=== PATIENT | female | born 1955 | race Caucasian/White ===

== ENCOUNTER 2021-04-30 13:28 | Emergency (ER) | payer BC, OTHER ==
--- OUTSIDE RECORDS SUMMARY | 2021-04-30 13:32 | XMS REPORT | Clinical Summary ---
:1955 Author Organization [facility] MD Valentin [facility] Address [address] [place] [address] Care Team Providers Name Role Phone Larry Moreno MD Primary Care Provider [phone] Rola Whittaker MD Unavailable Allergies No known active allergies Medications Medication Sig Dispensed Refills Start Date End Date Status potassium Take 10 mEq 0 02/14/2018 Active chloride by mouth (MICRO-K) 10 mEq daily. CR capsule propranolol Take 60 mg 0 04/20/2018 Active (INDERAL) 60 mg by mouth tablet twice daily. omeprazole Take 20 mg 0 Active (PriLOSEC) 20 mg by mouth capsule daily. Eliquis 5 mg Take 1 0 04/29/2020 Active tablet tablet by mouth twice daily. PRADAXA 150 mg Take 150 mg 0 03/28/2018 07/27/2020 D iscontinued (Not capsule by mouth Applicable ) twice daily. 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 Medical History Medical History Date Comments Hypertension Irregular heart beat Migraine Parkinson's disease Hearing loss Tooth disorder Arthritis Chronic constipation Gastroesophageal reflux disease Cardiomegaly Family History Medical History Relation Name Comments -Unknown cancer Maternal Grandmother Relation Name Status Comments Maternal Grandmother Social History Tobacco Use Types Packs/Day Years Used Date Never Smoker Smokeless Tobacco: Never Used Alcohol Use Standard Drinks/Week Comments No 0 (1 standard drink = 0.6 oz pure alcoho l) Sex Assigned at Date Recorded Not on file Job Start Date Occupation Industry Not on file Not on file Not on file Obstetrics History Last Filed Vital Signs Vital Sign Reading Time Taken Comments Blood Pressure 112/83 07/27/2020 10:22 AM CDT Pulse 95 07/27/2020 10:22 AM CDT Temperature 36.9 C (98.4 F) 07/27/2020 10:22 AM CDT Respiratory Rate 18 07/27/2020 10:22 AM CDT Oxygen Saturation 98% 07/27/2020 10:22 AM CDT Inhaled Oxygen Concentration - - Weight 106 kg (233 lb 11 oz) 07/27/2020 10:22 AM CDT Height - - Body Mass Index 38.47 06/11/2018 8:26 AM CDT Plan of Treatment Date Type Specialty Care Team Description 07/27/2021 Appointment Lab Tacho Villarreal MD [address] [place], [place] [address] (Be hess) 07/27/2021 Ancillary Procedure Radiology Payton Villarreal MD [address] [place], [place] [address] (Wo rk) 07/27/2021 Ancillary Procedure Radiology Payton Villarreal MD [address] [place] [place], [place] [address] (Wo rk) 07/27/2021 Office Visit Endocrinology Tacho Villarreal MD [address] [place], [place] [address] (Wo rk) Health Maintenance Due Date Last Done Comments COVID-19 Vaccination (1) 1960 Implants Implanted Type Area Superintendent Custodian Janitor Device Shelf Model / Serial Identifier Expiration / Lot Date Evicel 5ml Kit - [id number] Skin/Tis Right: "" 10/21/2019 [id number] / Implanted: Qty: 1 on 07/03/2018 by Juan Manuel Jones MD at [facility] [id number] / [id number] Procedures Procedure Name Priority Date/Time Associated Comments Diagnosis METANEPHRINES Routine 07/27/2020 9:59 Neoplasm of Results fo r this FRACTIONATED AM CDT uncertain behavior procedure are in of right adrenal the results gland section. Hypertension Benign neoplasm of left adrenal gland after 04/30/2020 Results Metanephrines Fractionated (07/27/2020 9:59 AM CDT) Normetane 0.35 <0.90 nmol/L [facility] [place] Metanephr <0.20 <0.50 nmol/L [facility] Comment: [facility] ADDITIONAL INFORMATION ------ This test was developed and its performance characteri stics determined by [facility] in a manner consistent with CLIA requirements. This test has not been cleared or approv ed by the U.S. Food and Drug Administration. Test Performed by: [facility] - [facility] [address] [place] [address] Ssds Mk 2 Advanced Operator: Hector Mckenzie M.D. Ph.D.; CLIA# [id number] Specimen Blood Performing Organization Address City/State/ZIP Code Phon e Number [facility] Unless otherwise noted, [place] [address] [place] all lab tests performed by: Division of Pathology and Laboratory Medicine [address] after 04/30/2020 Insurance Payer Benefit Plan / Subscriber ID Effective Phone Address T ype Group Dates [facility] MEDICARE [id number] 2020-Prese [address] [address] Medicare HEALTHCARE ADVANTAGE [place] [id number] Inna Machuca Personal/Family Self [address] (Home) [place] [address] [place] [address] [phone] 1 Advance Directives Code Status Date Activated Date Inactivated Comments Full Code 07/03/2018 1:51 PM 07/06/2018 5:10 PM Care 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
--- OUTSIDE RECORDS SUMMARY | 2021-04-30 13:32 | XMS REPORT | Continuity of Care Document ---
:1955 Author Organization [facility] t Address [address] [place] [address] Care Team Providers Name Role Phone SHARON JUAN Primary Care Physician Unavailable Boris HANSON, A Attending Clinician Laith WATSON Attending Clinician LAITH Attending Clinician Unavailable Pedro VILLARREAL Attending Clinician Unavailable Cherelle WATSON, A Attending Clinician Fidelia WATSON Attending Clinician Pob, Lab Main Attending Clinician Unavailable Doctor Unassigned, Name Attending Clinician Unavailable Josh WATSON Attending Clinician Payers Payer Name Policy Type Policy Number Effective Date Expiration Date Everette aguirre [facility] MEDICARE [id number] 2020 ADVANTAGE 00:00:00 Problems Condition Condition Condition Status Onset Resolution Last Treating Co mments Source Name Details Category Date Date Treatment Clinician Date Mass of Mass of Disease Active Overview: right right 4-22 Aleshia Cole adrenal adrenal 00:00: g of this n gland gland 00 note might be different from the original. Added automatic ally from request for surgery [id number] Hypertensi Hypertensi Disease Active 2019-0 M D on on 06-05 Anderso 00:00: n 00 Adrenal Adrenal Disease Active mass mass 3-11 Anderso 00:00: n 00 Pheochromo Pheochromo Disease Active 20190 M D cytoma cytoma 3-11 Anderso 00:00: n 00 Atrial Atrial Disease Active fibrillati fibrillati 3-11 An derso on on 00:00: n 00 Current Current Disease Active MD use of use of 311 Anderso anticoagul anticoagul 00:00: n ant ant 00 Low TSH Low TSH Disease Active Univers level level 9 ity of 00:00: [place] [address] Medical Branch Anemia, Anemia, Disease Active Univers unspecifie unspecifie 11-12 it y of d type d type 00:00: [address] Branch Colitis Colitis Disease Active Univers 9 ity of 00:00: [place] [address] Medical Branch Obesity Obesity Disease Active Univers (BMI (BMI 9- ity of 30-39.9) 30-39.9) 00:00: [address] Branch Chronic Chronic Disease Active 2015-02 Univers atrial atrial - ity of fibr[place] fibr[place] Essential Essential Disease Active 2015-02 Uni vers hypertensi hypertensi 1-21 it y of on on 00:00: [place] [address] Medical Branch Allergies, Adverse Reactions, Alerts Allergy Allergy Status Severity Reaction(s) Onset Inactive Treating Comm ents Source Name Type Date Date Clinician NO KNOWN Drug Active Univers ALLERGIE Class ity of S [facility] Family History Family Member Diagnosis Comments Start Date Stop Date Source Maternal grandmother -Unknown cancer MD Duff Social History Social Habit Start Date Stop Date Quantity Comments Source Exposure to Not sure University SARS-CoV-2 [place] [facility] (event) Branch Alcohol intake 2019-07-23 2019-07-23 Current MD Kelsey kumar 00:00:00 00:00:00 non-drinker of alcohol (finding) Tobacco use and 2018-04-30 2018-04-30 Smokeless tobacco MD Duff exposure 00:00:00 00:00:00 non-user Sex Ass[birth year] At [birth year] MD [place] on 00:00:00 00:00:00 Smoking Status Start Date Stop Date Source Never smoker [facility] Medical Branch Medications Ordered Filled Start Stop Current Ordering Indication Dosage Frequency Signature Comments Components Source Medication Medication Date Date Medication? Clinician (SIG) Name Name furosemide Yes [id number] 20mg Take 1 Univers (LASIX) 20 1-12 tablet by ity of mg tablet 00:00: mouth [place] 00 daily. Medical Branch KCL 10 mEq Yes [id number] 10meq Take 1 Univers tablet 1-12 tablet by ity of 00:00: mouth [place] 00 daily. Medical Branch furosemide Yes [id number] 20mg Take 1 Univers (LASIX) 20 1-12 tablet by ity of mg tablet 00:00: mouth [place] 00 daily. Medical Branch KCL 10 mEq Yes [id number] 10meq Take 1 Univers tablet 1-12 tablet by ity of 00:00: mouth [place] 00 daily. Medical Branch omeprazole Yes 20mg Take 20 mg M D (PriLOSEC) 6-07 by mouth Homero so 20 mg 10:57: daily. n capsule 27 Eliquis 5 Yes 1{tbl} Take 1 MD mg tablet 3-10 tablet by Homero so 00:00: mouth n 00 twice daily. propranolol 2018-02 Yes 20mg Take 20 mg Univers (INDERAL) 1-14 by mouth 2 ity of 10 mg 12:15: (two) [place] tablet 15 times Medical daily. Branch ASPIRIN/LULU 2018-02 Yes Take by Un ellen TAMINOPHEN/ 1-14 mouth. ity of CAFFEINE 12:15: [place] (EXCEDRIN 15 Medical MIGRAINE Branch ORAL) dabigatran 2018-02 Yes 150mg Take 150 Un ellen etexilate 1-14 mg by ity of (PRADAXA) 12:15: mouth 2 [place] 150 mg 15 (two) Medical capsule times Branch daily. omeprazole 2018-02 Yes 20mg Take 20 mg U nivers 20 mg 1-14 by mouth ity of capsule 12:15: daily. [place] 15 Medical Branch propranolol 2018-02 Yes 20mg Take 20 mg Univers (INDERAL) 1-14 by mouth 2 ity of 10 mg 12:15: (two) [place] tablet 15 times Medical daily. Branch ASPIRIN/LULU 2018-02 Yes Take by Un ellen TAMINOPHEN/ 1-14 mouth. ity of CAFFEINE 12:15: [place] (EXCEDRIN 15 Medical MIGRAINE Branch ORAL) dabigatran 2018-02 Yes 150mg Take 150 Un ellen etexilate 1-14 mg by ity of (PRADAXA) 12:15: mouth 2 [place] 150 mg 15 (two) Medical capsule times Branch daily. omeprazole 2018-02 Yes 20mg Take 20 mg U nivers 20 mg 1-14 by mouth ity of capsule 12:15: daily. [place] 15 Medical Branch propranolol Yes 60mg Take 60 mg MD (INDERAL) 3-01 by mouth [place] o 60 mg 00:00: twice n tablet 00 daily. PRADAXA 150 2020- No 150mg Take 150 MD mg capsule 2-06 06-07 mg by Anderso 00:00: 00:00 mouth n 00 :00 twice daily. potassium 2017-02 Yes 10meq Take 10 MD chloride 2-26 mEq by Anderso (MICRO-K) 00:00: mouth n 10 mEq CR 00 daily. capsule Omeprazole 2017-02 Yes Take by Uni vers Magnesium 1-20 mouth. ity of 20 mg 11:16: [place] capsule 09 Medical Branch Omeprazole 2017-02 Yes Take by Uni vers Magnesium 1-20 mouth. ity of 20 mg 11:16: [place] capsule 09 Medical Branch dicyclomine 2017-0 Yes [id number] 20mg Take 1 Univers 20 mg 9-11 tablet by ity of tablet 00:00: mouth 2 [place] (two) Medical times Branch daily. As needed for abdominal cramping dicyclomine 2017-0 Yes [id number] 20mg Take 1 Univers 20 mg 9-11 tablet by ity of tablet 00:00: mouth 2 [place] (two) Medical times Branch daily. As needed for abdominal cramping ciprofloxac 2017- Yes 500mg Take 1 Uni vers in HCl 500 9-05 tablet by ity of mg tablet 00:00: mouth 2 [place] (two) Medical times Branch daily. lisinopril 2017- Yes 20mg Take 1 Unive rs 20 mg 9-05 tablet by ity of tablet 00:00: mouth [place] 00 daily. Medical Branch ciprofloxac 2017- Yes 500mg Take 1 Uni vers in HCl 500 9-05 tablet by ity of mg tablet 00:00: mouth 2 00 (two) Medical times Branch daily. lisinopril 2018-0 Yes 20mg Take 1 Unive rs 20 mg 9-05 tablet by ity of tablet 00:00: mouth [place] [address] daily. Medical Branch Immunizations Ordered Filled Immunization Date Status Comments [facility] e Immunization Name Name Pneumococcal 2021-02-10 Completed [facility] f Polysaccharide, 00:00:00 [facility] ical PPSV23 (PNEUMOVAX) Branch Pneumococcal 2021-02-10 Completed [facility] f Polysaccharide, 00:00:00 [facility] ical PPSV23 (PNEUMOVAX) Branch Pneumococcal 2019-01-03 Completed [facility] f Polysaccharide, 00:00:00 [facility] ical PPSV23 (PNEUMOVAX) Branch Pneumococcal 2019-01-03 Completed [facility] f Polysaccharide, 00:00:00 [facility] ical PPSV23 (PNEUMOVAX) Branch Influenza High Dose 2018-12-21 Completed Unive rsity of 00:00:00 [facility] Influenza High Dose 2018-12-21 Completed Unive rsity of 00:00:00 [facility] Influenza Virus 2017-12-07 Completed Universit y of Vaccine Quad IM 3+ 00:00:00 [facility] Influenza Virus 2017-12-07 Completed Universit y of Vaccine Quad IM 3+ 00:00:00 [facility] Influenza Virus 2015-12-24 Completed Universit y of Vaccine Quad IM 3+ 00:00:00 [facility] Branch Pneumococcal 13 2015-12-24 Completed Universit y of Conjugate, PCV13 00:00:00 [facility] dical (Prevnar 13) [place] Influenza Virus 2015-12-24 Completed Universit y of Vaccine Quad IM 3+ 00:00:00 [facility] Branch Pneumococcal 13 2015-12-24 Completed Universit y of Conjugate, PCV13 00:00:00 [facility] dical (Prevnar 13) Branch Vital Signs Vital Name Observation Time Observation Value Comments Source Systolic blood 2021-04-06 19:25:00 103 mm[Hg] Univer sity of pressure [facility] Diastolic blood 2021-04-06 19:25:00 63 mm[Hg] Unive rsity of pressure [facility] Heart rate 2021-04-06 19:25:00 91 /min Universi ty of [facility] Body temperature 2021-04-06 19:25:00 36.5 Candace [facility] Respiratory rate 2021-04-06 19:25:00 16 /min [facility] Body height 2021-04-06 19:25:00 [facility]2 [facility] Body weight 2021-04-06 19:25:00 110.95 [facility] BMI 2021-04-06 19:25:00 38.31 kg/m2 [facility] Oxygen saturation in 2021-04-06 19:25:00 99 /min [facility] of Arterial blood by [facility] Pulse oximetry Branch WEIGHT 2020-07-27 10:22:00 106 kg WEIGHT 2020-07-27 10:22:00 106 kg Systolic blood 2020-07-27 15:22:00 112 mm[Hg] pressure Diastolic blood 2020-07-27 15:22:00 83 mm[Hg] MD Lucy almonteson pressure Heart rate 2020-07-27 15:22:00 95 /min MD Homero maldonado Body temperature 2020-07-27 15:22:00 36.89 Candace MD Pedro sanchezon Respiratory rate 2020-07-27 15:22:00 18 /min MD Pedro sanchezon Body weight 2020-07-27 15:22:00 106 kg MD Valentin son BMI 2020-07-27 15:22:00 38.47 kg/m2 MD Homero maldonado Oxygen saturation in 2020-07-27 15:22:00 98 /min MD Duff Arterial blood by Pulse oximetry Procedures Procedure Date / Time Performed Performing Clinician Sourc e METANEPHRINES FRACTIONATED 2020-07-27 14:59:00 Tacho Villarreal MD Plan of Care Planned Activity Planned Date Details Comments Source Future Scheduled Test 1960 00:00:00 COVID-19 Vaccination MD Duff (1) [code = COVID-19 Vaccination (1)] Encounters Start End Encounter Admission Attending Care Care Encounter Source Date/Time Date/Time Type Type Clinicians Facility Department ID 2021-04-08 2021-04-08 Prep For [facility], [facility] [id number] Univers 00:00:00 00:00:00 Surgery Tere CRUZ [id number] ity [facility] [id number] [id number] In dical NAL 204 [facility] 2021-04-06 2021-04-06 [facility] [id number] Univers 14:00:00 14:50:03 Visit Roman NANCY [id number] i ty [facility] [id number] [id number] In dical NAL 188 [facility] 2021-04-06 2021-04-06 Outpatient R LAITH [facility] [id number] [facility] 14:00:00 14:50:03 ROMAN stephanie [facility] 2020-07-27 2020-07-27 Outpatient WILY VILLARREAL MDA MDA [id number] 09:15:00 23:59:00 TACHO Chaparro rso n 2020-07-27 2020-07-27 Outpatient WILY VILLARREAL MDA MDA [id number] 10:14:47 11:25:51 TACHO Chaparro rso n 2019-06-21 2019-06-21 Zipper Trimmer Hand Karol Acosta [facility] [id number] 12:07:14 12:22:14 Visit Lab Ryan Cruz [id number] [place] [id number] Professio [id number] [address] 2019-06-21 2019-06-21 Orders [id number] 00:00:00 00:00:00 Only UnassignedBETTY [id number] Chloride [facility] [id number] 2019-06-07 2019-06-07 Fernie Juan [facility] [id number] 00:00:00 00:00:00 Larry Cruz [id number] [place] [id number] Professio [id number] [address] 2019-06-07 2019-06-07 Orders [id number] 00:00:00 00:00:00 Only Unassigned, BETTY [id number] [facility] [id number] Results Test Description Test Time Test Comments Results Result Comments Source Metanephrines Fractionated 2020-07-30 16:22:57 Test Item Value Reference Range Interpretation Comme nts Normetane Free-Ji 0.35 nmol/L <0.90 (test code = 53955-8) Metanephr Free-Ji <0.20 See_Comment ------- ADDITIONAL (test code = 64150-2) INFORM ATION This test was develo ped and its performance surinder racteristicsdetermined by [facility] in a manner consistent with Elaina caicedo. This test has not been cleare d or approved bythe U.S. Food and D rug Administration. Test Performed by:[facility] [place] [address]Lab Director: Hector gallego M.D. Ph.D.; CLIA# [id number] [Au tomated message] The system which ge nerated this result transmitted ref erence range: <0.50 nmol/L. The ref erence range was not used to interpr et this result as normal/abnormal . MD Duff
[2021-04-30] MEDS ORDERED: MEPERIDINE HCL 25 MG/ML SYR ONE (14:40)
[2021-04-30] MEDS ORDERED: ONDANSETRON 4 MG (ODT) TAB ONE (14:40)
--- NOTE | 2021-04-30 15:09 | RAD REPORT ---
EXAM DESCRIPTION: CTSpine Lumbar Wo Con04/30/2021 2:42 pm CLINICAL HISTORY: Back pain and COMPARISON: None TECHNIQUE: Computed axial tomography lumbar spine was obtained with coronal and sagittal reconstruct ion. All CT scans are performed using dose optimization technique as appropriate and may include automated exposure control or mA/KV adjustment according to patient size. FINDINGS: No fracture is seen. No dislocation Mild anterior subluxation of L3 on L4 Spondylosis L2-3 resulting in mild central spinal stenosis Vacuum phenomena L3-4 with disc thinning. Ligamentum flavum and facet hypertrophy. Thecal sac measure s approximately 6 millimeters. Mild to moderate narrowing of the right neural foramina Vacuum phenomena L4-5. Disc thinning with osteophytes. Ligamentum flavum and facet hypertrophy. Theca l sac appears markedly narrowed. Moderate narrowing of the neural foramina bilaterally Mild spondylosis L5-S1 Hemangioma L1 vertebral body IMPRESSION: Spondylosis L3-4. Mild anterior subluxation L3 on L4. This results in moderate to marked central spinal stenosis Spondylosis L4-5 resulting in marked central spinal stenosis. Nonemergent MRI would be recommended prior to any surgery.
--- NOTE | 2021-04-30 15:41 | ER ---
Nurse's Notes [facility] Name: Inna Machuca Age: 65 yrs Sex: Female : 1955 Arrival Date: 04/30/2021 Time: 13:33 Bed 10 Private MD: Diagnosis: Radiculopathy, lumbar region;Low back pain Presentation: 04/30 13:35 Chief complaint: Patient states: Pt bib EMS for R hip pain that radiates down her R leg lr4 since this AM. Pt states the pain started yesterday but was not debilitating until today. Pt states she has had trouble with R or L leg pain that radiates down for about a year now. Pt states the she has not received any dx for symptoms yet. Coronavirus screen: Vaccine status: Patient reports receiving the 2nd dose of the covid vaccine. Date December 11, 2020 Client denies travel out of the [place] in the last 14 days. At this time, the client does not indicate any symptoms associated with coronavirus-19. Ebola Screen: Patient negative for fever greater than or equal to 101.5 degrees Fahrenheit, and additional compatible Ebola Virus Disease symptoms. Initial Sepsis Screen: Does the patient meet any 2 criteria? No. Patient's initial sepsis screen is negative. Does the patient have a suspected source of infection? No. Patient's initial sepsis screen is negative. Risk Assessment: Do you want to hurt yourself or someone else? Patient reports no desire to harm self or others. Onset of symptoms was April 29, 2021. 13:35 Method Of Arrival: EMS lr4 13:35 Acuity: YANNICK 4 lr4 Triage Assessment: 13:39 General: Appears in no apparent distress. comfortable, uncomfortable, Behavior is calm, lr4 cooperative. Pain: Complains of pain in R hip Pain radiates to right leg Pain currently is 9 out of 10 on a pain scale. Historical: - Allergies: 13:39 No Known Allergies; lr4 - Home Meds: 13:39 Eliquis oral [Active]; Potassium Chloride Oral [Active]; propranolol Oral [Active]; lr4 - PMHx: 13:39 Atrial fibrillation; Obesity; Hypertensive disorder; lr4 - PSHx: 13:39 adrenal gland removal; lr4 - Immunization history:: Adult Immunizations up to date, Client reports receiving the 2nd dose of the Covid vaccine, Date received: December 11, 2020 [employer]. - Social history:: Smoking status: Patient denies any tobacco usage or history of. Screenin:46 Abuse screen: Denies threats or abuse. Nutritional screening: No deficits noted. lr4 Tuberculosis screening: No symptoms or risk factors identified. Fall Risk None identified. Assessment: 13:46 General: Appears in no apparent distress. uncomfortable, Behavior is calm, cooperative. lr4 Neuro: No deficits noted. Cardiovascular: No deficits noted. Respiratory: No deficits noted. Musculoskeletal: Circulation, motion, and sensation intact. Range of motion: limited in right hip Reports. 15:54 Reassessment: Patient is alert, oriented x 3, equal unlabored respirations, skin lr4 warm/dry/pink. Pt departed ed via wheelchair with all personal effects Patient states feeling better. Vital Signs: 13:35 BP 136 / 75; Pulse 88; Resp 20; Temp 96.5(O); Pulse Ox 98% on R/A; Weight 113.4 kg (R); lr4 Height 5 ft. 7 in. (170.18 cm); Pain 9/10; 15:54 BP 126 / 81; Pulse 85; Resp 20; Pulse Ox 98% on R/A; lr4 13:35 Body Mass Index 39.16 (113.40 kg, 170.18 cm) lr4 ED Course: 13:33 Patient arrived in ED. lr4 13:34 Trisha Moreno, BIRD is Primary Nurse. lr4 13:39 Triage completed. lr4 13:39 Arm band placed on right wrist. lr4 13:42 Pete Morales PA is PHCP. jr8 13:42 Real Borden MD is Attending Physician. jr8 13:47 Patient has correct armband on for positive identification. Bed in low position. Call lr4 light in reach. Door closed. Noise minimized. 13:47 No provider procedures requiring assistance completed. lr4 14:42 CT Lumbar Spine Wo Con In Process Unspecified. EDMS 16:03 Patient did not have IV access during this emergency room visit. lr4 Administered Medications: 14:50 Drug: Demerol (meperidine) 50 mg Route: IM; Site: right gluteus; lr4 15:28 Follow up: Response: Pain is unchanged, physician notified lr4 14:56 Drug: Ondansetron 4 mg Route: PO; lr4 15:28 Follow up: Response: Nausea is decreased lr4 15:46 Drug: Ketorolac 15 mg Route: IM; Site: left gluteus; lr4 15:53 Follow up: Response: Pain is decreased lr4 15:46 Drug: Decadron (dexamethasone) 10 mg Route: IM; Site: left gluteus; lr4 15:53 Follow up: Response: No adverse reaction lr4 Outcome: 13:47 Condition: stable lr4 15:40 Discharge ordered by . vikki 16:02 Discharged to home via wheelchair. lr4 16:02 Discharge instructions given to patient. 16:04 Patient left the ED. lr4 Signatures: Dispatcher [employer] EDMS Pete Morales PA PA jr8 Trisha Moreno RN RN lr4
--- NOTE | 2021-04-30 15:41 | EDPHYS ---
Physician Documentation [facility] Name: Inna Machuca Age: 65 yrs Sex: Female : 1955 Arrival Date: 04/30/2021 Time: 13:33 Bed 10 Private MD: ED Physician Real Borden HPI: 04/30 15:06 This 65 yrs old Female presents to ER via EMS with complaints of Low back and right leg jr8 pain. 15:06 The patient presents with pain that is acute, and decreased range of motion, and jr8 tenderness. The symptoms are located in the low back. The pain radiates to the right leg. The problem was sustained from unknown cause. Onset: The symptoms/episode began/occurred suddenly, yesterday. Modifying factors: The patient symptoms are alleviated by nothing, the patient symptoms are aggravated by any movement. Associated signs and symptoms: The patient has no apparent associated signs or symptoms. Severity of symptoms: At their worst the symptoms were moderate, in the emergency department the symptoms are unchanged. The patient has not experienced similar symptoms in the past. The patient has not recently seen a physician. Historical: - Allergies: 13:39 No Known Allergies; lr4 - Home Meds: 13:39 Eliquis oral [Active]; Potassium Chloride Oral [Active]; propranolol Oral [Active]; lr4 - PMHx: 13:39 Atrial fibrillation; Obesity; Hypertensive disorder; lr4 - PSHx: 13:39 adrenal gland removal; lr4 - Immunization history:: Adult Immunizations up to date, Client reports receiving the 2nd dose of the Covid vaccine, Date received: December 11, 2020 [employer]. - Social history:: Smoking status: Patient denies any tobacco usage or history of. ROS: 15:06 Eyes: Negative for injury, pain, redness, and discharge, ENT: Negative for injury, jr8 pain, and discharge, Neck: Negative for injury, pain, and swelling, Cardiovascular: Negative for chest pain, palpitations, and edema, Respiratory: Negative for shortness of breath, cough, wheezing, and pleuritic chest pain, Abdomen/GI: Negative for abdominal pain, nausea, vomiting, diarrhea, and constipation, MS/Extremity: Negative for injury and deformity, Skin: Negative for injury, rash, and discoloration, Neuro: Negative for headache, weakness, numbness, tingling, and seizure. 15:06 Back: Positive for decreased range of motion, pain at rest, pain with movement, radiated pain, of the low back area. Exam: 15:06 Cardiovascular: Regular rate and rhythm with a normal S1 and S2. No gallops, murmurs, jr8 or rubs. Normal PMI, no JVD. No pulse deficits. Respiratory: Lungs have equal breath sounds bilaterally, clear to auscultation and percussion. No rales, rhonchi or wheezes noted. No increased work of breathing, no retractions or nasal flaring. Abdomen/GI: Soft, non-tender, with normal bowel sounds. No distension or tympany. No guarding or rebound. No evidence of tenderness throughout. Skin: Warm, dry with normal turgor. Normal color with no rashes, no lesions, and no evidence of cellulitis. MS/ Extremity: Pulses equal, no cyanosis. Neurovascular intact. Full, normal range of motion. Neuro: Awake and alert, GCS 15, oriented to person, place, time, and situation. Cranial nerves II-XII grossly intact. Motor strength 5/5 in all extremities. Sensory grossly intact. 15:06 Constitutional: The patient appears alert, awake, in obvious pain. 15:06 Back: pain, that is moderate, of the right low back, ROM is painful, with all movement, normal spinal alignment noted, CVA tenderness, is absent, vertebral tenderness, is not appreciated. Vital Signs: 13:35 BP 136 / 75; Pulse 88; Resp 20; Temp 96.5(O); Pulse Ox 98% on R/A; Weight 113.4 kg (R); lr4 Height 5 ft. 7 in. (170.18 cm); Pain 9/10; 15:54 BP 126 / 81; Pulse 85; Resp 20; Pulse Ox 98% on R/A; lr4 13:35 Body Mass Index 39.16 (113.40 kg, 170.18 cm) lr4 MDM: 14:17 Patient medically screened. jr8 15:23 Data reviewed: vital signs, nurses notes, radiologic studies, CT scan. Data jr8 interpreted: Pulse oximetry: on room air is 98 %. Interpretation: normal. Counseling: I had a detailed discussion with the patient and/or guardian regarding: the historical points, exam findings, and any diagnostic results supporting the discharge/admit diagnosis, radiology results, the need for outpatient follow up, a orthopedic surgeon. 15:36 ED course: Discussed with patient that she needs nonemergent MRI and f/u with jr8 Orthopedic Spine. If worse to come back. Otherwise had some improvement while here. No signs on exam of acute cord compression . 04/30 14:20 Order name: CT Lumbar Spine Wo Con; Complete Time: 15:22 jr8 Administered Medications: 14:50 Drug: Demerol (meperidine) 50 mg Route: IM; Site: right gluteus; lr4 15:28 Follow up: Response: Pain is unchanged, physician notified lr4 14:56 Drug: Ondansetron 4 mg Route: PO; lr4 15:28 Follow up: Response: Nausea is decreased lr4 15:46 Drug: Ketorolac 15 mg Route: IM; Site: left gluteus; lr4 15:53 Follow up: Response: Pain is decreased lr4 15:46 Drug: Decadron (dexamethasone) 10 mg Route: IM; Site: left gluteus; lr4 15:53 Follow up: Response: No adverse reaction lr4 Disposition: 16:05 Co-signature as Attending Physician, Real Borden MD I agree with the assessment and kdr plan of care. Disposition Summary: 04/30/21 15:40 Discharge Ordered Location: Home jr Problem: new jr8 Symptoms: have improved jr8 Condition: Stable jr8 Diagnosis - Radiculopathy, lumbar region jr8 - Low back pain jr8 Followup: jr8 - With: Private Physician - When: 1 week - Reason: Recheck today's complaints, Continuance of care, Re-evaluation by your physician Discharge Instructions: - Discharge Summary Sheet jr8 - Acute Back Pain, Adult jr8 - Heat Therapy jr8 Forms: - Medication Reconciliation Form jr8 - Thank You Letter jr8 - Antibiotic Education jr8 - Prescription Opioid Use jr8 Prescriptions: - meloxicam 15 mg Oral tablet - take 1 tablet by ORAL route once daily; 10 tablet; Refills: 0, Product jr8 Selection Permitted - Skelaxin 800 mg Oral Tablet - take 1 tablet by ORAL route every 8 hours As needed; 30 tablet; Refills: 0, jr8 Product Selection Permitted - Medrol (Christian) 4 mg Oral Tablets, Dose Pack - take 1 tablet by ORAL route as directed - follow package instructions; 1 jr8 packet; Refills: 0, Product Selection Permitted Signatures: Dispatcher [employer] Real Perez MD MD kdr Roszak, Josh, PA PA jr8 Trisha Moreno RN RN lr4
[2021-04-30] MEDS ORDERED: dexAMETHasone 4 MG/ML VIAL ONE (15:45)
[2021-04-30] MEDS ORDERED: KETOROLAC 30 MG/ML INJ ONE (15:45)
[2021-04-30 16:08] VITALS: TEMP 96.5; O2SAT 98
[2021-04-30 16:09] VITALS: BP 126/81
== END 2021-04-30 16:04 | disposition home or self-care (01) ==
LOC: ER 13:28
DX: M54.16 Radiculopathy, lumbar region (principal); M79.604 Pain in right leg; I10 Essential (primary) hypertension; I48.91 Unspecified atrial fibrillation; Z79.01 Long term (current) use of anticoagulants
CPT/HCPCS: 72131; 96372; 99283; J1100; J2175